=== PATIENT | female | born 1985 | race Caucasian/White ===

== ENCOUNTER → 2019-09-05 | Outpatient (CLI) | payer OTHER ==
--- NOTE | 2019-09-05 09:07 | RAD ---
EXAM: Abdomen sonogram. HISTORY: Right upper quadrant pain. TECHNIQUE: Sonographic imaging of the abdomen was performed. COMPARISON: None. FINDINGS: The liver is normal in size. No focal hepatic lesion is seen. The common bile duct is normal in caliber. The gallbladder wall is normal in thickness. The kidneys are normal in size. The pancreas, aorta, inferior vena cava and spleen are unremarkable. There is a circumscribed hyperechoic nonvascular lesion involving the left kidney, measuring 9 mm in maximum dimension. This demonstrates no posterior shadowing to suggest calcification. IMPRESSION: 1. 9 mm circumscribed echogenic lesion without posterior shadowing or internal blood flow involving the left kidney. The sonographic appearance favors an angiomyolipoma. Renal protocol CT or MRI can be performed to confirm benignity. 2. Otherwise, unremarkable abdomen sonogram. Electronically signed by: Radha Waggoner MD (09/05/2019 9:04 AM) [facility], [place] [address]
== END | disposition home or self-care (01) ==
LOC: US 07:16
PROVIDERS: ATTEND Obstetrics & Gynecology
DX: N28.89 Other specified disorders of kidney and ureter (principal)
CPT/HCPCS: 76700